=== PATIENT | female | born 1990 | race African-American/Black ===

== ENCOUNTER 2019-11-19 08:44 | Observation (INO) | payer SELFPAY ==
[2019-11-19] MEDS ORDERED: MORPHINE SULFATE 10 MG/ML INJ IV ONE (09:08)
--- NOTE | 2019-11-19 09:14 | ER Document Report ---
ED Skin Rash/Insect Bite/Abscs - General Chief Complaint: Abscess Stated Complaint: ABSCESS/RIGHT ARM PIT Time Seen by Provider: 11/19/19 09:00 Information source: Patient Notes: HPI: 29-year-old female who presents today with a two-week development of a right axillary abscess. No fevers or vomiting. No history of diabetes. Patient states she has had multiple abscesses in bilateral axilla areas but has never had needed to have one drained. She denies any other symptoms such as chest pain, shortness of breath, cough, or rash to any other location. ROS: See HPI All other review of systems reviewed and otherwise negative Reviewed vital signs and nursing note as charted by RN. PHYSICAL EXAM: CONSTITUTIONAL: Alert and oriented and responds appropriately to questions. Well-appearing; well-nourished CARD: Regular rate and rhythm; no murmurs; symmetric distal pulses RESP: Normal chest excursion without splinting or tachypnea; breath sounds clear and equal bilaterally ABD/GI: Normal bowel sounds; elevated BMI; soft, non-tender; no palpable organomegaly or masses BACK: The back appears normal and is non-tender to palpation EXT: Patient is very painful movement of the right arm overhead secondary to the pain in the axilla. Patient has a tender fluctuant large area to the right axilla. It is to the inferior part of the axilla and wraps around to the superior lateral part of the axilla. Very tender to palpation. No real surrounding erythema SKIN: See above NEURO: CN 2-12 intact; 5/5 bilateral upper and lower extremity strength with sensation intact to light touch PSYCH: The patient's mood and manner are appropriate. Grooming and personal hygiene are appropriate. - Related Data Allergies/Adverse Reactions: No Known Allergies Allergy (Verified 11/19/19 09:04) Past Medical History - Social History Smoking Status: Current Every Day Smoker Frequency of alcohol use: None Drug Abuse: None Family History: Reviewed & Not Pertinent Patient has homicidal ideation: No - Past Medical History Cardiac Medical History: Reports: Hx Hypertension Physical Exam - Vital signs Vitals: Temp Pulse Resp BP Pulse Ox 98.7 F 107 H 16 166/100 H 95 11/19/19 08:48 11/19/19 08:48 11/19/19 08:48 11/19/19 08:48 11/19/19 08:48 Course - Re-evaluation Re-evalutation: 11/19/19 09:14 Given the above history and physical examination I do believe that the patient has a very large axillary abscess. No signs of sepsis. No allergies to medications. I will obtain IV access and provide pain medications. Given the extent of the lesion I will discuss with surgery whether they would like to take the patient to the operating room. If not I will most likely discussed with the patient conscious sedation. 11/19/19 09:59 Surgery has seen and assessed the patient. They do believe that the patient requires surgery. They will admit the patient given that she ate breakfast this morning. - Vital Signs Vital signs: Temp Pulse Resp BP Pulse Ox 98.7 F 107 H 16 166/100 H 95 11/19/19 09:05 11/19/19 08:48 11/19/19 08:48 11/19/19 08:48 11/19/19 08:48 - Laboratory Result Diagrams: 11/19/19 09:30 11/19/19 09:30 Laboratory results interpreted by me: 11/19/19 09:30 WBC 16.0 H Hgb 10.4 L Hct 32.1 L MCV 66 L MCH 21.5 L RDW 19.7 H Plt Count 495 H Absolute Neuts (auto) 11.7 H Absolute Monos (auto) 1.5 H Discharge - Discharge Clinical Impression: Axillary abscess Condition: Fair Disposition: ADMITTED OBSERVATION Admitting Provider: Surgicalist Unit Admitted: Surgical Floor
[2019-11-19] MEDS ORDERED: VANCOMYCIN HCL INJ 1000 MG VIAL IV ONE (09:51)
[2019-11-19 09:52] LABS: ABSOLUTE BASOPHILS # (AUTO) 0.2 10^3/uL (0.0-0.2); ABSOLUTE EOSINOPHILS # (AUTO) 0.3 10^3/uL (0.0-0.6); ABSOLUTE LYMPHOCYTES (AUTO) 2.3 10^3/uL (0.5-4.7); ABSOLUTE MONOCYTES (AUTO) 1.5 10^3/uL (0.1-1.4); ABSOLUTE NEUT (AUTO) 11.7 10^3/uL (1.7-8.2); BASOPHILS % (AUTO) 0.9 % (0-2); EOSINOPHILS % (AUTO) 2.2 % (0-6); HEMATOCRIT 32.1 % (36.0-47.0); HEMOGLOBIN 10.4 g/dL (12.0-15.5); LYMPHOCYTES % (AUTO) 14.2 % (13-45); MEAN CORPUSCULAR HEMOGLOBIN 21.5 pg (27.0-33.4); MEAN CORPUSCULAR HGB CONC 32.4 g/dL (32.0-36.0); MEAN CORPUSCULAR VOLUME 66 fl (80-97); MONOCYTES % (AUTO) 9.6 % (3-13); PLATELET COUNT 495 10^3/uL (150-450); RED BLOOD COUNT 4.84 10^6/uL (3.72-5.28); RED CELL DISTRIBUTION WIDTH 19.7 % (11.5-14.0); SEGMENTED NEUTROPHILS % (AUTO) 73.1 % (42-78); TOTAL CELLS COUNTED % (AUTO) 100 %
[2019-11-19 10:02] LABS: ANION GAP 7 (5-19); BLOOD UREA NITROGEN 9 mg/dL (7-20); CALCIUM 9.6 mg/dL (8.4-10.2); CARBON DIOXIDE 23 mmol/L (22-30); CHLORIDE 107 mmol/L (98-107); GLUCOSE 100 mg/dL (75-110); POTASSIUM 4.3 mmol/L (3.6-5.0)
[2019-11-19] MEDS ORDERED: GLUCAGON,HUMAN RECOMB 1 MG INJ SUBCUT PRN (10:13)
[2019-11-19] MEDS ORDERED: DEXTROSE 50%-WATER 25 GM/50 ML DISP.SYRIN IV PRN ×2 (10:13)
[2019-11-19] MEDS ORDERED: DEXTROSE 40% GEL 15 GM TUBE PO PRN ×2 (10:13)
[2019-11-19] MEDS ORDERED: MORPHINE SULFATE 10 MG/ML INJ IV PRN (10:13)
[2019-11-19] MEDS ORDERED: VANCOMYCIN HCL 0 MG in DEXTROSE 5%-WATER 250 ML IV NR (10:30)
[2019-11-19] MEDS: FAMOTIDINE 20 MG TABLET PO SCH ×2 (12:22→22:33)
[2019-11-19] MEDS: NORMAL SALINE 1000 ML 1,000 ML IV PRN (12:44)
[2019-11-19] MEDS: KETOROLAC TROMETHAMINE INJ/PF 30 MG/1 ML SDV IV SCH ×2 (14:37→22:32)
[2019-11-19] MEDS: ACETAMINOPHEN 1,000 MG/100 ML RTUPB IV SCH ×2 (14:38→22:33)
--- NOTE | 2019-11-19 17:42 | PDOC H&P ---
History of Present Illness Admission Date/PCP: 11/19/19 10:09 Patient complains of: Swelling, pain, erythema right axilla History of Present Illness: REGAN MORELOS is a 29 year old female with a history of axillary abscesses. The patient reports a several day history of pain and swelling in the axilla. She reports subjective fevers and chills. She denies any drainage. She reports her pain as 9 out of 10. It is sharp and stabbing. She has difficulty with movement of her arm due to the pain. It does not radiate. Nothing makes it better, movement and palpation make it worse. She denies chest pain, shortness of breath, nausea, vomiting, abdominal pain, dizziness, weakness, orthostasis, blurry vision, headache. Past Medical History Cardiac Medical History: Reports: Hypertension Past Surgical History Past Surgical History: Reports: None Social History Smoking Status: Current Every Day Smoker Hx Recreational Drug Use: No Hx Prescription Drug Abuse: No Family History Family History: Reviewed & Not Pertinent Parental Family History Reviewed: Yes Children Family History Reviewed: Yes Sibling(s) Family History Reviewed.: Yes Medication/Allergy Home Medications: No Home Medications 11/19/19 Allergies/Adverse Reactions: No Known Allergies Allergy (Verified 11/19/19 09:04) Review of Systems Constitutional: PRESENT: chills. ABSENT: anorexia, fever(s), headache(s), weakness Eyes: ABSENT: visual disturbances Ears: ABSENT: hearing changes Nose, Mouth, and Throat: ABSENT: sore throat Cardiovascular: ABSENT: chest pain Respiratory: ABSENT: cough, dyspnea Gastrointestinal: ABSENT: abdominal pain, bloating, hematemesis, hematochezia, melena, nausea, vomiting Genitourinary: ABSENT: dysuria Musculoskeletal: ABSENT: back pain Integumentary: PRESENT: erythema, other - Fluctuant abscess, right axilla Neurological: ABSENT: confusion, convulsions, dizziness Psychiatric: ABSENT: anxiety, depression Endocrine: ABSENT: cold intolerance, heat intolerance Hematologic/Lymphatic: ABSENT: easy bleeding, easy bruising Physical Exam Vital Signs: Temp Pulse Resp BP Pulse Ox 98.7 F 107 H 16 166/100 H 95 11/19/19 09:05 11/19/19 08:48 11/19/19 08:48 11/19/19 08:48 11/19/19 08:48 Intake & Output 11/18/19 11/19/19 11/20/19 06:59 06:59 06:59 Weight 124.5 kg General appearance: PRESENT: no acute distress, cooperative Head exam: PRESENT: atraumatic, normocephalic Eye exam: PRESENT: EOMI, PERRLA. ABSENT: scleral icterus Mouth exam: PRESENT: moist, neck supple Neck exam: ABSENT: meningismus, tenderness, thyromegaly, tracheal deviation Respiratory exam: PRESENT: unlabored. ABSENT: tachypnea, wheezes Cardiovascular exam: PRESENT: RRR. ABSENT: tachycardia Vascular exam: PRESENT: normal capillary refill. ABSENT: pallor GI/Abdominal exam: PRESENT: soft. ABSENT: distended, firm, guarding, rigid, tenderness Rectal exam: PRESENT: deferred Extremities exam: ABSENT: clubbing Musculoskeletal exam: ABSENT: deformity Neurological exam: PRESENT: alert, awake, oriented to person, oriented to place, oriented to time, oriented to situation, CN II-XII grossly intact Psychiatric exam: ABSENT: agitated, anxious, depressed Focused psych exam: ABSENT: delusional Skin exam: PRESENT: other - Fluctuant, tender, erythematous abscess to the right axilla, measuring approximately 5 cm in total diameter. There is excessive tenderness to palpation. There is limited range of motion due to pain. Results Laboratory Results: 11/19/19 09:30 11/19/19 09:30 11/19/19 11/19/19 09:30 09:30 WBC 16.0 H RBC 4.84 Hgb 10.4 L Hct 32.1 L MCV 66 L MCH 21.5 L MCHC 32.4 RDW 19.7 H Plt Count 495 H Seg Neutrophils % 73.1 Sodium 137.4 Potassium 4.3 Chloride 107 Carbon Dioxide 23 Anion Gap 7 BUN 9 Creatinine 0.48 L Est GFR ( Amer) > 60 Glucose 100 Calcium 9.6 Assessment & Plan - Diagnosis (1) Axillary abscess Is this a current diagnosis for this admission?: Yes - Plan Summary Plan Summary: This is a 29-year-old female with a right axillary abscess. She has had several spontaneously drained axillary abscesses in the past, and has never required surgery. Her abscess appears deep, large, and involved. She has excessive amounts of pain. I have recommended admission to the hospital with operative drainage. The patient reports that she "just ate before arriving to the emergency department". I have discussed the case with anesthesia. They prefer to wait at least 8 hours after a meal before scheduling surgery. I will plan for operative drainage of her large right axillary abscess in the operating room tomorrow. Start vancomycin. COVID-19 testing now. Risks/benefits of surgery were discussed, informed consent was obtained, and all questions were answered.
[2019-11-19] MEDS: VANCOMYCIN HCL 1,250 MG in DEXTROSE 5%-WATER 250 ML IV SCH (22:33)
[2019-11-20] MEDS: VANCOMYCIN HCL 1,250 MG in DEXTROSE 5%-WATER 250 ML IV SCH ×3 (05:55→21:04)
[2019-11-20] MEDS: ACETAMINOPHEN 1,000 MG/100 ML RTUPB IV SCH (05:57)
[2019-11-20] MEDS: KETOROLAC TROMETHAMINE INJ/PF 30 MG/1 ML SDV IV SCH ×3 (05:57→21:04)
[2019-11-20 07:05] LABS: ABSOLUTE BASOPHILS # (AUTO) 0.1 10^3/uL (0.0-0.2); ABSOLUTE EOSINOPHILS # (AUTO) 0.2 10^3/uL (0.0-0.6); ABSOLUTE LYMPHOCYTES (AUTO) 2.1 10^3/uL (0.5-4.7); ABSOLUTE MONOCYTES (AUTO) 1.5 10^3/uL (0.1-1.4); ABSOLUTE NEUT (AUTO) 11.3 10^3/uL (1.7-8.2); BASOPHILS % (AUTO) 0.4 % (0-2); EOSINOPHILS % (AUTO) 1.5 % (0-6); HEMATOCRIT 28.7 % (36.0-47.0); HEMOGLOBIN 9.2 g/dL (12.0-15.5); LYMPHOCYTES % (AUTO) 13.7 % (13-45); MEAN CORPUSCULAR HEMOGLOBIN 21.3 pg (27.0-33.4); MEAN CORPUSCULAR HGB CONC 32.1 g/dL (32.0-36.0); MEAN CORPUSCULAR VOLUME 66 fl (80-97); PLATELET COUNT 415 10^3/uL (150-450); RED BLOOD COUNT 4.32 10^6/uL (3.72-5.28); RED CELL DISTRIBUTION WIDTH 19.1 % (11.5-14.0); SEGMENTED NEUTROPHILS % (AUTO) 74.4 % (42-78); TOTAL CELLS COUNTED % (AUTO) 100 %; WHITE BLOOD COUNT 15.2 10^3/uL (4.0-10.5)
[2019-11-20 07:31] LABS: ANION GAP 9 (5-19); BLOOD UREA NITROGEN 7 mg/dL (7-20); CARBON DIOXIDE 21 mmol/L (22-30); CHLORIDE 105 mmol/L (98-107); GLUCOSE 89 mg/dL (75-110); POTASSIUM 3.8 mmol/L (3.6-5.0)
[2019-11-20] MEDS ORDERED: BUPIVACAINE HCL 0.25 % INJ/PF (2.5 MG/1 ML) 30 ML VIAL ONE (07:51)
[2019-11-20] MEDS ORDERED: MIDAZOLAM 2 MG/2 ML INJ ONE (08:02)
[2019-11-20] MEDS ORDERED: FENTANYL CITRATE INJ/PF 100 MCG/2 ML AMPUL ONE (08:02)
[2019-11-20] MEDS ORDERED: ONDANSETRON HCL INJ/PF 4 MG/2 ML SDV ONE (08:02)
[2019-11-20] MEDS ORDERED: MORPHINE SULFATE 10 MG/ML INJ ONE (08:03)
[2019-11-20] MEDS ORDERED: PROPOFOL INJ 200 MG/20 ML VIAL IV ONE (08:03)
--- NOTE | 2019-11-20 08:09 | PDOC PROGRESS REPORT ---
Subjective Progress Note for:: 11/20/19 Subjective:: This is a 29-year-old large right axillary abscess. She continues to experience pain in the area. She denies chest pain, shortness of breath, nausea, vomiting, dizziness, orthostasis, fatigue, malaise. Reason For Visit: LARGE RIGHT AXILLARY ABSCESS Physical Exam Vital Signs: Temp Pulse Resp BP Pulse Ox 98.8 F 81 16 130/77 H 100 11/20/19 07:36 11/20/19 07:36 11/20/19 07:36 11/20/19 07:36 11/20/19 07:36 Intake & Output 11/19/19 11/20/19 11/21/19 06:59 06:59 06:59 Intake Total 1989 Balance 1989 Weight 123.8 kg General appearance: PRESENT: no acute distress, cooperative, obese Head exam: PRESENT: atraumatic, normocephalic Eye exam: PRESENT: EOMI, PERRLA. ABSENT: scleral icterus Mouth exam: PRESENT: moist, neck supple Neck exam: ABSENT: meningismus, tenderness, thyromegaly, tracheal deviation Respiratory exam: PRESENT: unlabored. ABSENT: tachypnea, wheezes Cardiovascular exam: ABSENT: tachycardia Pulses: PRESENT: normal radial pulses Vascular exam: PRESENT: normal capillary refill GI/Abdominal exam: PRESENT: soft. ABSENT: distended, tenderness Rectal exam: PRESENT: deferred Extremities exam: PRESENT: other - See skin exam. ABSENT: clubbing Musculoskeletal exam: ABSENT: deformity Neurological exam: PRESENT: alert, awake, oriented to person, oriented to place, oriented to time, oriented to situation, CN II-XII grossly intact Psychiatric exam: ABSENT: agitated, anxious, depressed Focused psych exam: ABSENT: delusional Skin exam: PRESENT: erythema - Right axilla, other - Erythematous fluctuant mass in right axilla, consistent with abscess. Results Laboratory Results: 11/20/19 06:07 11/20/19 06:07 11/19/19 11/19/19 11/20/19 09:30 09:30 06:07 WBC 16.0 H 15.2 H RBC 4.84 4.32 Hgb 10.4 L 9.2 L Hct 32.1 L 28.7 L MCV 66 L 66 L MCH 21.5 L 21.3 L MCHC 32.4 32.1 RDW 19.7 H 19.1 H Plt Count 495 H 415 Seg Neutrophils % 73.1 74.4 Sodium 137.4 Potassium 4.3 Chloride 107 Carbon Dioxide 23 Anion Gap 7 BUN 9 Creatinine 0.48 L Est GFR ( Amer) > 60 Glucose 100 Calcium 9.6 11/20/19 06:07 WBC RBC Hgb Hct MCV MCH MCHC RDW Plt Count Seg Neutrophils % Sodium 134.7 L Potassium 3.8 Chloride 105 Carbon Dioxide 21 L Anion Gap 9 BUN 7 Creatinine 0.44 L Est GFR ( Amer) > 60 Glucose 89 Calcium 9.0 Assessment & Plan - Diagnosis (1) Axillary abscess Is this a current diagnosis for this admission?: Yes - Plan Summary Plan Summary: 29-year-old female with a right axillary abscess. Plan for incision and drainage in the OR today. Risks/benefits discussed, informed consent obtained, and all questions answered.
[2019-11-20] MEDS ORDERED: HYDROCODONE/ACETAMINOPHEN 10-325 MG TABLET PO PRN (09:45)
--- NOTE | 2019-11-20 09:50 | Operative Report ---
Nonrecallable Operative Report DATE OF SURGERY: 11/20/19 PREOPERATIVE DIAGNOSIS: Complex right axillary abscess POSTOPERATIVE DIAGNOSIS: Same as above OPERATION: Incision and drainage of large, complex right axillary abscess. SURGEON: MEAGHAN BRATON ANESTHESIA: GA TISSUE REMOVED OR ALTERED: Wound culture COMPLICATIONS: None apparent ESTIMATED BLOOD LOSS: Minimal PROCEDURE: Drains/implants: #1 Ju drain. 2. Betadine soaked 4 x 4's. Procedure in detail: After informed consent was obtained, the patient was br ought to the operating room and laid in the supine position. The area of the right axilla was prepped and draped in a normal sterile fashion. The fluctuant area in the medial axilla was examined. There was purulent drainage emanating from the skin. This area was laid open with a 15 blade scalpel. There was a large cavity identified. The cavity tracked laterally, onto the upper arm. A large amount of purulent material was encountered. After the abscess cavity was opened medially, it was felt necessary to make a counterincision on the right upper arm. This was done using a 15 blade scalpel. Wound cultures were taken. The large abscess cavity was copiously irrigated. A [place] drain was placed through the 2 incisions, in order to facilitate drainage. The wound was then packed with 4 x 4's soaked in Betadine. A dressing was placed, and the procedure was concluded. All sponge, instrument, and needle counts were correct x2. Condition: Stable.
[2019-11-20] MEDS ORDERED: DEXAMETHASONE SOD PHOSPHATE INJ 4 MG/1 ML VIAL ONE (10:11)
[2019-11-20] MEDS ORDERED: KETOROLAC TROMETHAMINE 60 MG/2 ML SDV ONE (10:11)
[2019-11-20] MEDS ORDERED: SUCCINYLCHOLINE CHLORIDE INJ 200 MG/10 ML VIAL ONE (10:11)
[2019-11-20] MEDS ORDERED: ROCURONIUM BROMIDE INJ 50 MG/5 ML VIAL IV ONE (10:11)
[2019-11-20] MEDS: FAMOTIDINE 20 MG TABLET PO SCH ×2 (10:57→21:04)
[2019-11-20] MEDS: NORMAL SALINE 1000 ML 1,000 ML IV PRN (17:34)
[2019-11-21] MEDS: NORMAL SALINE 1000 ML 1,000 ML IV PRN (01:48)
[2019-11-21] MEDS: VANCOMYCIN HCL 1,250 MG in DEXTROSE 5%-WATER 250 ML IV SCH ×2 (05:09→13:55)
[2019-11-21] MEDS: KETOROLAC TROMETHAMINE INJ/PF 30 MG/1 ML SDV IV SCH ×2 (05:09→15:09)
--- NOTE | 2019-11-21 08:48 | PDOC PROGRESS REPORT ---
Subjective Progress Note for:: 11/21/19 Reason For Visit: LARGE RIGHT AXILLARY ABSCESS Feels better, no complaints; no fever overnight. Physical Exam Vital Signs: Temp Pulse Resp BP Pulse Ox 98.6 F 74 16 111/61 100 11/21/19 07:23 11/21/19 07:23 11/21/19 07:23 11/21/19 07:23 11/21/19 07:23 Intake & Output 11/20/19 11/21/19 11/22/19 06:59 06:59 06:59 Intake Total 1989 3541 Output Total Balance 1989 3516 Weight 123.8 kg 122.2 kg General appearance: PRESENT: no acute distress Skin exam: PRESENT: other - Right axilla examined. Packing removed uneventf ully. Ju drain left in position. Surrounding skin, subcutaneous tissue minimally edematous, no foul smell, pus expressed. Range of motion arm very good. Results Laboratory Results: 11/20/19 06:07 11/20/19 06:07 Assessment & Plan - Diagnosis (1) Axillary abscess Is this a current diagnosis for this admission?: Yes Plan: Impression: Patient is 1 day status post I&D right axillary abscess, packing removed, doing well, sepsis source controlled. Recommendations: 1. Continue IV antibiotics today; then DC home, with local wound care which was discussed with the patient, and nursing staff. 2. Patient can follow-up with [place] [facility] in 1 week. 3. Patient encouraged to shower, leave Ju loop drain in position. - Time Time Spent: 30 to 50 Minutes
[2019-11-21] MEDS: FAMOTIDINE 20 MG TABLET PO SCH (10:17)
[2019-11-21 14:24] LABS: VANCOMYCIN,TROUGH 9.2 ug/mL (5.0-20.0)
--- NOTE | 2019-11-21 15:29 | PDOC DISCHARGE SUMMARY ---
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 She was evaluated by the general surgery service and felt to require incision and drainage. The patient was admitted to the acute care surgery service, kept on intravenous antibiotics, 24 hours later, taken to the operating room by Dr. Raul Jules on November 19 and underwent right axillary abscess drainage with [place] loop drain placement. Patient was continued on intravenous antibiotics. The first postoperative day her packing was removed, and she tolerated this well. She was ambulating had adequate pain control was felt to be ready for discharge home. - Additional Information Resuscitation Status: Full Code Discharge Diet: As Tolerated Discharge Activity: Activity As Tolerated - Patient get into the shower, manipulate drain and wash without packing. She can cover the axilla with a dry dressing. No further antibiotics will be prescribed. She will follow-up with [place] [facility] in 1 to [address] Jules. Will take Tylenol Motrin as needed pain Referrals: MEAGHAN JULES MD [ACTIVE STAFF] - 11/24/19 10:15 am (r axillary abscess) Home Medications: No Home Medications 11/19/19 History of Present Illiness History of Present Illness: REGAN MORELOS is a 29 year old female Physical Exam Vital Signs: Temp Pulse Resp BP Pulse Ox 98.9 F 91 17 105/87 H 100 11/21/19 11:42 11/21/19 11:42 11/21/19 11:42 11/21/19 11:42 11/21/19 11:42 Intake & Output 11/20/19 11/21/19 11/22/19 06:59 06:59 06:59 Intake Total 1989 8157 530 Output Total Balance 1989 5964 530 Weight 123.8 kg 122.2 kg Results Laboratory Results: WBC 15.2 10^3/uL (4.0-10.5) H 11/20/19 06:07 RBC 4.32 10^6/uL (3.72-5.28) 11/20/19 06:07 Hgb 9.2 g/dL (12.0-15.5) L 11/20/19 06:07 Hct 28.7 % (36.0-47.0) L 11/20/19 06:07 MCV 66 fl (80-97) L 11/20/19 06:07 MCH 21.3 pg (27.0-33.4) L 11/20/19 06:07 MCHC 32.1 g/dL (32.0-36.0) 11/20/19 06:07 RDW 19.1 % (11.5-14.0) H 11/20/19 06:07 Plt Count 415 10^3/uL (150-450) 11/20/19 06:07 Lymph % (Auto) 13.7 % (13-45) 11/20/19 06:07 [place] % (Auto) 10.0 % (3-13) 11/20/19 06:07 Eos % (Auto) 1.5 % (0-6) 11/20/19 06:07 Baso % (Auto) 0.4 % (0-2) 11/20/19 06:07 Absolute Neuts (auto) 11.3 10^3/uL (1.7-8.2) H 11/20/19 06:07 Absolute Lymphs (auto) 2.1 10^3/uL (0.5-4.7) 11/20/19 06:07 Absolute Monos (auto) 1.5 10^3/uL (0.1-1.4) H 11/20/19 06:07 Absolute Eos (auto) 0.2 10^3/uL (0.0-0.6) 11/20/19 06:07 Absolute Basos (auto) 0.1 10^3/uL (0.0-0.2) 11/20/19 06:07 Seg Neutrophils % 74.4 % (42-78) 11/20/19 06:07 Sodium 134.7 mmol/L (137-145) L 11/20/19 06:07 Potassium 3.8 mmol/L (3.6-5.0) 11/20/19 06:07 Chloride 105 mmol/L (98-107) 11/20/19 06:07 Carbon Dioxide 21 mmol/L (22-30) L 11/20/19 06:07 Anion Gap 9 (5-19) 11/20/19 06:07 BUN 7 mg/dL (7-20) 11/20/19 06:07 Creatinine 0.44 mg/dL (0.52-1.25) L 11/20/19 06:07 Est GFR ( Amer) > 60 (>60) 11/20/19 06:07 Est GFR (MDRD) Non-Af > 60 (>60) 11/20/19 06:07 Glucose 89 mg/dL (75-110) 11/20/19 06:07 Calcium 9.0 mg/dL (8.4-10.2) 11/20/19 06:07 Time Trough Drawn 1345 11/21/19 13:45 Vancomycin Trough 9.2 ug/mL (5.0-20.0) 11/21/19 13:45 SARS-CoV-2 (PCR) NEGATIVE (NEGATIVE) 11/19/19 10:30
[2019-11-21 15:34] VITALS: BP 130/77
== END 2019-11-21 15:50 | disposition home or self-care (01) ==
LOC: ER 08:44 → EH 10:09 → 4N 11:11
PROVIDERS: ATTEND Surgery
DX: L02.411 Cutaneous abscess of right axilla (principal); F17.200 Nicotine dependence, unspecified, uncomplicated; E66.9 Obesity, unspecified; Z03.818 Encounter for observation for suspected exposure to other biological agents ruled out
CPT/HCPCS: 99285; 96375; 96365; 36415 ×3; 87070; 87205; 85025 ×2; 87635; 87075; 87077; 80048 ×2; 80202; 94799; 10061; J2250; J3490; J1100; J1885 ×4; J3010; J2270 ×2; J0330; J2405; J7060 ×3; J7030 ×3; J2704; J3370 ×3; J0131 ×2; C9803; 400; 99140